=== PATIENT | male | born 1990 | race Caucasian/White ===

== ENCOUNTER 2021-06-30 13:28 | Emergency (ER) | payer MEDICAID, SELFPAY ==
[2021-06-30 13:33] VITALS: BP 143/79; PULSE 94; RESP 14; TEMP 37; O2SAT 98
--- NOTE | 2021-06-30 13:49 | ED.GENADUL_ITS ---
Discharge Plan Disposition Patient Disposition: HOME Condition: Stable Discharge Details Clinical Impression: Laceration of forearm, right Primary Care Provider: None,None ED Provider: Samm Gross Home Meds and New Rx's Prescriptions: No Action No Known Home Meds RF: 0 Discharge Instructions Instructions: Laceration (ED) Additional Instructions: Please keep wound clean and dry. Change dressing daily and monitor for signs of infection including increased redness, warmth, drainage, discharge, swelling or pain. Reapply a sterile dressing to keep wound protected. Return to the ED for suture removal in 7 to 10 days. Please return to the emergency emergency apartment sooner for any worsening or new concerning symptoms. Discharge Data Discharge Date/Time-TO BE ENTERED AT DEPARTURE: 06/30/21 14:58 Medical Decision Making 1400 -- 30yo male here with right forearm laceration that occurred last night. Wound is gaping. Plan for irrigation and will reapproximate borders loosely to encourage healing. Tetanus up-to-date. -- Wound was irrigated with copious sterile saline and primary closure performed without complication. Wound borders were well approximated, hemostasis achieved. Sterile dressing was applied. Usual customary discharge instructions were reviewed with the patient. HPI General Mode of arrival: ambulatory . Date/Time Provider Initiated Documentation: 06/30/21 13:48 . Limitations to Documentation: no limitations . Information obtained by: patient . HPI Narrative: 30-year-old male with chief complaint of arm laceration. Patient notes yesterday evening he was reaching into trunk of his car and cut his arm on a piece of metal recent speaker installation. Patient notes with a clean cut and no mental broke off. Wound initially was bleeding and bleeding has now stopped. He is concerned with exposed adipose tissue. Laceration is deep, no modifiers. He has chronic paresthesia of his right upper extremity postoperatively. No weakness. Related Data Home Medications Medication Instructions Recorded Confirmed Unknown [No Known Home Meds] 06/30/21 06/30/21 Allergies Allergy/AdvReac Type Severity Reaction Status Date / Time bee venom protein (honey bee) Allergy Unverified 06/30/21 13:37 General Stated Complaint: Laceration RAVI: 3 Review of Systems Integumentary/Breasts Skin/Breast: Reports as per HPI Neurologic Neurologic: Reports as per HPI PFSH All Active Problems Laceration of forearm, right (Acute) Social History Smoking/Tobacco Use Status: Current every day Tobacco Type: cigarettes Smoking risk assessment performed?: Yes Alcohol Intake: current Alcohol Intake frequency: 0-2 drinks per day Alcohol type: beer Drug use: Never Substance use type: does not use Do you feel safe at home: Yes Do you feel safe in your relationship?: Yes Exam Skin Trauma: laceration (Linear, horizontal, 5 cm right anterior forearm, full- thickness, gaping) Neuro Other: Diminished sensation right forearm and distally that he notes is chronic and unchanged Full strength distal right upper extremity Course Vital Signs Vital signs: Vital Signs Temperature 37.0 C 06/30/21 13:33 Pulse 94 H 06/30/21 13:33 Respiratory Rate 14 06/30/21 13:33 Blood Pressure 143/79 H 06/30/21 13:33 Pulse Oximetry 98 06/30/21 13:33 Temperature 37.0 C 06/30/21 13:33 Temperature Source Temporal Artery Scan 06/30/21 13:33 Pulse 94 H 06/30/21 13:33 Respiratory Rate 14 06/30/21 13:33 Respiratory Effort Non-Labored 06/30/21 13:38 Blood Pressure 143/79 H 06/30/21 13:33 Pulse Oximetry 98 06/30/21 13:33 Oxygen Delivery Method Room Air 06/30/21 13:33 Oxygen Flow Rate 0 06/30/21 13:33 Pain Level 0 06/30/21 13:33 Procedures Laceration Laceration 1: Site: upper extremity Side (If applicable): right Size (cm): 5 Description: linear Depth: simple, single layer Local Anesthetic: Lidocaine 1% Amount of anesthesia used (mL): 4 Pre-repair: wound explored, irrigated extensively and deep structures intact Skin layer closed with: nylon Size (cm): 4-0 Number of sutures: 7 Technique: simple, interrupted PAWSS Have you Been Recently Intoxicated or Drunk Within the Last 30 days?: No Have you Ever Experienced Previous Episodes of Alcohol Withdrawal?: No Have you ever Experienced Withdrawal Seizures?: No Have you ever Experienced Delirium Tremens(DT)s?: No Have you ever undergone Alcohol Rehabilitation Treatment (i.e, inpt ot outpatient treatment programs)?: Yes Have you ever Experienced Blackouts?: No Have you ever Combined Alcohol with other Downers within the last 90 days?: No Have you ever Combined Alcohol with any other Substance of Abuse during the last 90 days?: No Positive Blood Alcohol level on Presentation? [PCS.BAL]: No Evidence of Increased Autonomic Activity (i.e. HR>120, tremor, sweating, agitation, nausea)?: No Result: 1
[2021-06-30] MEDS: Lidocaine/Epinephri/Tetracaine Topical Gel 3 ML TP (13:58)
== END 2021-06-30 14:58 | disposition home or self-care (01) ==
PROVIDERS: Emergency Provider Student in an Organized Health Care Education/Training Program
DX: S51.811A Laceration without foreign body of right forearm, initial encounter (principal); W26.8XXA Contact with other sharp object(s), not elsewhere classified, initial encounter
CPT/HCPCS: 12002

== ENCOUNTER 2023-10-23 07:51 | Emergency (ER) | payer SELFPAY ==
[2023-10-23 07:57] VITALS: BP 147/103; PULSE 71; RESP 20; TEMP 36.7; O2SAT 99
--- NOTE | 2023-10-23 08:15 | DI.CT_ITS ---
Exam(s) CT ABDOMEN PELVIS WO EXAM: CT ABDOMEN PELVIS WO CLINICAL HISTORY: right flank pain. TECHNIQUE: Imaging Protocol: Axial computed tomography images with coronal and sagittal reformatted images were created and reviewed. COMPARISON: No exams were available for comparison FINDINGS: ABDOMEN: Lung Bases: Normal where visualized. Liver: Normal density. No measurable mass. Gallbladder and biliary tract: No radiodense calculus or biliary ductal dilation. Pancreas: Normal density, no abnormal calcifications or inflammatory process. Spleen: Normal. Kidneys: Normal size, contour and axis.There is bilateral nephrolithiasis. No ureterolithiasis or hy dronephrosis. No masses seen. Adrenal glands: No mass is seen. Lymph nodes: Within normal limits. Abdominal Aorta: Abdominal portion non-dilated. PELVIS: Bladder:The urinary bladder is incompletely distended. There is thickening of the wall of the urinar y bladder which may be due to underdistention. Cystitis cannot be excluded. Bowel: No obstruction or bowel wall thickening. Appendix is unremarkable. Peritoneal cavity: No ascites, collection or mesenteric inflammatory response. No free air. Reproductive organs: Unremarkable as visualized. Bones: Within normal limits. 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 Soft Tissues: Within normal limits. IMPRESSION: 1. Bilateral nephrolithiasis. No evidence of hydronephrosis. 2. Mild thickening of the urinary bladder wall. This may be due to underdistention. Cystitis cannot be excluded. Please correlate clinically. 3. Normal appendix. RADIATION DOSE DELIVERED: 600.37mGy.cm Total DLP DATA REPOSITORY: All CT scans at this facility are submitted to the National Radiology Data Registry (NRDR) Dose Index Registry (DIR) with the [employer] (A[employer]). RADIATION OPTIMIZATION: All CT scans at this facility use at least one of these dose optimization te chniques: automated exposure control; mA and/or kV adjustment per patient size (includes targeted exa ms where dose is matched to clinical indication); or iterative reconstruction.
[2023-10-23] MEDS: Ondansetron O.D.T. 4 MG TABEF 8 MG PO (08:31)
[2023-10-23] MEDS: Ketorolac 10 MG TAB PO (08:31)
[2023-10-23 08:44] LABS: Bilirubin Negative (Negative); Blood Trace-intact (Negative); Clarity Clear (Clear); Glucose Negative (Negative); Ketones Negative (Negative); Leukocyte Esterase Negative (Negative); Nitrite Negative (Negative); Specific Gravity 1.025 (1.005-1.025); Urobilinogen 0.2 mg/dL (Up to 0.2)
[2023-10-23 08:55] LABS: Bacteria Rare HPF (Negative); C & S Indicated? No; Casts 0-2 Hyaline LPF (Negative); Crystals Negative HPF (Negative); Epithelial Cells Rare HPF (Negative); Mucus Negative (Negative); RBC 0-2 HPF (0-2); WBC Negative HPF (0-5)
--- NOTE | 2023-10-23 13:43 | ED.GENADUL_ITS ---
Discharge Plan Disposition Patient Disposition: Home Condition: Stable Discharge Details Clinical Impression: Acute flank pain, Vomiting Primary Care Provider: None,None ED Provider: Eliceo Heard Home Meds and New Rx's Prescriptions: New ondansetron 4 mg tablet,disintegrating 4 mg PO Q8H PRN (Reason: nausea and vomiting) Qty: 20 0RF Discharge Instructions Instructions: Flank Pain (ED) Additional Instructions: no signs of urine infection or kidney stone take zofran as needed for nausea take motrin / tylenol as needed for pain HPI General Date/Time Provider Initiated Documentation: 10/23/23 08:18 . Limitations to Documentation: no limitations . Information obtained by: patient . HPI Narrative: 33-year-old gentleman without significant past medical history presents for ev aluation of abdominal pain and vomiting. Reports that he started having vomiting and then had some pain in his right flank and upper abdomen. Reports the pain is worse with movement. He reports a few episodes of vomiting. Denies any diarrhea. Denies any hematuria or dysuria. He denies history of renal stone. No sick contacts. Related Data Home Medications Medication Instructions Recorded Confirmed ondansetron 4 mg disintegrating 4 mg PO Q8H PRN nausea and 10/23/23 tablet vomiting #20 tabs Previous Rx's Medication Instructions Recorded ondansetron 4 mg disintegrating 4 mg PO Q8H PRN nausea and 10/23/23 tablet vomiting #20 tabs Allergies Allergy/AdvReac Type Severity Reaction Status Date / Time bee venom protein (honey bee) Allergy Anaphylaxis Unverified 10/23/23 08:00 General Stated Complaint: FlankPain RAVI: 3 Exam Narrative Exam Narrative: Review of Systems: All systems reviewed & are unremarkable except as noted in HPI and below Well-developed, no acute distress NCAT PERRL, normal conjunctiva RRR Unlabored respiratory effort, clear bilaterally Nondistended abdomen , nontender, no CVA tenderness Does have a small bruise overlying the right flank Extremities w/o deformity, no cyanosis, no edema No rashes or lesions. no focal neurologic deficits Appropriate mood and affect Course Vital Signs Vital signs: Vital Signs Temperature 36.7 C 10/23/23 07:57 Pulse 71 10/23/23 07:57 Respiratory Rate 20 10/23/23 07:57 Blood Pressure 147/103 H 10/23/23 07:57 Pulse Oximetry 99 10/23/23 07:57 Temperature 36.7 C 10/23/23 07:57 Temperature Source Skin 10/23/23 07:57 Pulse 71 10/23/23 07:57 Respiratory Rate 20 10/23/23 07:57 Respiratory Effort Normal, Non-Labored 10/23/23 08:00 Blood Pressure 147/103 H 10/23/23 07:57 Blood Pressure Position Sitting 10/23/23 07:57 Pulse Oximetry 99 10/23/23 07:57 Oxygen Delivery Method Room Air 10/23/23 07:57 Oxygen Flow Rate 0 10/23/23 07:57 Pain Level 7 10/23/23 08:31 Lab/Test Results Lab/Test Results: Laboratory Tests Range/Units 10/23/23 08:30 Urine Color (Yellow) Yellow Urine Clarity (Clear) Clear Urine pH (5-8) 6.0 Ur Specific [place] (1.005-1.025) 1.025 Urine Protein (Neg-Trace) mg/dL 30 H Urine Ketones (Negative) mg/dL Negative Urine Blood (Negative) Trace-intact H Urine Nitrite (Negative) Negative Urine Bilirubin (Negative) Negative Urine Urobilinogen (Up to 0.2) mg/dL 0.2 Ur Leukocyte Esterase (Negative) Negative Urine RBC (0-2) HPF 0-2 Urine WBC (0-5) HPF Negative Ur Epithelial Cells (Negative) HPF Rare Urine Crystals (Negative) HPF Negative Urine Bacteria (Negative) HPF Rare Urine Casts (Negative) LPF 0-2 Hyaline Urine Mucus (Negative) Negative Ur Culture Indicated? No Urine Glucose (Negative) mg/dL Negative Medical Decision Making Evaluation of vomiting and right flank pain. Initial differential includes cholelithiasis, cholecystitis, renal stone, gastroenteritis. Patient is well- appearing with stable vital signs. He has no clinical signs of dehydration. He has a benign physical examination. He was given Zofran in the emergency department for his nausea. He did not have any additional episodes of vomiting. He has no signs of infection in his urinalysis. A CT scan was obtained and this was unremarkable for any acute process or explanation for the patient's symptoms. He was advised of his workup results. A prescription for Zofran was sent to the pharmacy and the patient should return if symptoms do not improve or if he is not tolerating anything by mouth Medical Records Medical records reviewed: Yes I reviewed the patient's medical records. Lab Data Lab results reviewed: Yes I reviewed the patient's lab results. Quality:SDOH Health Related Social Needs: No Data to Display PFSH All Active Problems Vomiting (Acute) Acute flank pain (Acute) Social History Smoking/Tobacco Use Status: Current every day Tobacco Type: cigarettes Smoking risk assessment performed?: Yes Alcohol Intake: current Alcohol Intake frequency: a few times a month Alcohol type: beer Drug use: Never Substance use type: does not use Do you feel safe at home: Yes Do you feel safe in your relationship?: Yes
== END 2023-10-23 10:22 | disposition home or self-care (01) ==
PROVIDERS: Emergency Provider Emergency Medicine
DX: R10.31 Right lower quadrant pain (principal); R11.2 Nausea with vomiting, unspecified
CPT/HCPCS: 99284; 74176; 81003; 81015; 99283

== ENCOUNTER 2024-08-01 14:29 | Outpatient (REF) | payer MEDICAID, SELFPAY ==
[2024-08-01 14:55] LABS: Abs Immature Grans 0.03 10^3/uL (0.0-0.06); Absolute Basophil Count 0.03 10^3/uL (0.0-0.2); Absolute Eosinophil Count 0.05 10^3/uL (0.0-0.7); Absolute Lymphocyte Count 1.51 10^3/uL (1.2-3.4); Absolute Monocyte Count 0.54 10^3/uL (0.1-0.8); Absolute Neutrophil Count 5.35 10^3/uL (1.2-6.7); Basophils % 0.4 %; Eosinophils % 0.7 %; HCT 43.7 % (40.0-50.0); HGB 14.9 g/dL (13.5-17.5); Immature Grans % 0.4 %; Lymphocytes % 20.1 %; MCH 32.4 pg (27.0-33.0); MCHC 34.1 % (32.0-36.0); MCV 95 fL (80-95); Monocytes % 7.2 %; Neutrophils % 71.2 %; Platelet Count 288 10^3/uL (130-400); RDW 12.8 % (11.8-14.1); RDW-SD 45.1 fL; WBC 7.51 10^3/uL (4.4-10.8)
[2024-08-01 15:21] LABS: ALT 19 U/L (16-63); AST 23 U/L (15-37); Albumin 4.2 g/dL (3.4-5.0); Alkaline Phosphatase 100 U/L (46-116); BUN 15 mg/dL (7-18); Bilirubin, Total 0.19 mg/dL (0.2-1.0); Calcium 9.2 mg/dL (8.5-10.1); Calculated LDL 89 mg/dL (<100); Chloride 103 mmol/L (98-107); Cholesterol 179 mg/dL (<200); Estimated GFR 102.55 (mL/min/1.73m2); Glucose 93 mg/dL (74-106); HDL Cholesterol 75 mg/dL (40-60); Potassium 4.5 mmol/L (3.5-5.1); Sodium 138 mmol/L (136-145); Total Protein 7.2 g/dL (6.4-8.2); Triglyceride 78 mg/dL (<150)
[2024-08-02 10:19] LABS: HIV-1/2 Ag & Ab Screen Negative (Negative)
[2024-08-02 10:32] LABS: Hepatitis C Ab w Rflx HCV PCR Reactive (Negative)
[2024-08-05 14:33] LABS: HCV RNA Qualitative Undetected (Undetected)
== END 2024-08-01 14:30 | disposition home or self-care (01) ==
LOC: NCHCN 14:29
PROVIDERS: Visit Provider Nurse Practitioner Family
DX: Z00.00 Encounter for general adult medical examination without abnormal findings (principal)
CPT/HCPCS: 80053; 80061; 86803; 87389; 87522; 85025